=== PATIENT | female | born 1995 | race Two or more races ===

== ENCOUNTER 2021-01-21 17:52 | Emergency (ER) | payer OTHER ==
[~2021-01-21] VITALS: Ht 167.6 cm; Wt 82.6 kg
== END 2021-01-21 19:46 | disposition home or self-care (01) ==
LOC: ER 17:52
DX: M94.0 Chondrocostal junction syndrome [Tietze] (principal); M41.9 Scoliosis, unspecified

== ENCOUNTER 2024-03-12 05:32 | Emergency (ER) | payer OTHER ==
[~2024-03-12] VITALS: Ht 167.6 cm; Wt 72.6 kg
[2024-03-12] MEDS ORDERED: METHYLPREDNISOLONE SOD SUCC 125 MG VIAL IM STA (07:05)
[2024-03-12] MEDS ORDERED: GUAIFENESIN 200 MG/10 ML BLIST.PACK PO STA (07:05)
[2024-03-12] MEDS ORDERED: ALBUTEROL SULFATE 3 ML/2.5 MG AMPUL.NEB IH SCH (07:15)
[2024-03-12 07:48] LABS: HEMATOCRIT 37.9 % (36.0-45.00); HEMOGLOBIN 12.7 g/dL (12.0-15.00); MEAN CELL VOLUME 82.5 fL (80.00-100.00); MEAN CORPUSCULAR HEMOGLOBIN 27.6 pg (27.00-32.0); MEAN CORPUSCULAR HGB CONC 33.4 g/dl (32.0-36.0); PLATELET COUNT 225 K/uL (150-450); RED BLOOD COUNT 4.59 M/uL (4.00-6.00); RED CELL DISTRIBUTION WIDTH 14.9 % (11.5-14.5)
[2024-03-12] MEDS ORDERED: IPRAT-ALBUT 0.5-3 ML IH (09:59)
[2024-03-12] MEDS ORDERED: TUSNEL LIQUID178 ML PO (09:59)
== END 2024-03-12 10:04 | disposition home or self-care (01) ==
LOC: ER 05:35
PROVIDERS: General Practice
DX: R05.9 Cough, unspecified (principal)